=== PATIENT | female | born 1970 | race American Indian/Alaskan Native ===

== ENCOUNTER 2020-09-01 11:28 | Day surgery (SDC) | payer OTHER ==
--- NOTE | 2020-08-31 17:56 | History and Physical Report ---
History of Present Illness Date of examination: 08/28/20 Chief complaint: menometrorrhagia, possible endometrial mass History of present illness: Past History : 2 Term Births: 1 Living Children: 1 Elect. 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 History Operations: ankle surgery(R) liposuction gluteal lift Breast Reduction: Colon polypectomy (04/2020) Abnormal PAP: positive Infection History HIV Risk Eval: no Hx of STD: HSV Other: hpv Active Medications (reviewed today): VALACYCLOVIR HCL 1 GM ORAL TABLET (VALACYCLOVIR HCL) 1 tab po qd x5days as needed LOSARTAN POTASSIUM TABLET (LOSARTAN POTASSIUM TABS) MULTIVITAMINS ORAL CAPSULE (MULTIPLE VITAMIN) PARAGARD INTRAUTERINE COPPER INTRAUTERINE INTRAUTERINE DEVICE (IUD'S) Current Allergies (reviewed today): No known allergies Past Medical History: Reviewed history from 08/26/2020 and no changes required: Hypertension ECC(2010): atypical squamous metaplasia. Colon polyps benign (04/2020) Past Surgical History: Reviewed history from 08/26/2020 and no changes required: ankle surgery(R) liposuction gluteal lift Breast Reduction: Colon polypectomy (04/2020) Family History Summary: Reviewed history Last on 08/26/2020 and no changes required:08/31/2020 Other Family Member - Has No Family History of Uterine Cancer - Entered On: 02/25/2020 Other Family Member - Has No Family History of Small Bowel Cancer - Entered On: 02/25/2020 Other Family Member - Has No Family History of Stomach Cancer - Entered On: 02/25/2020 Other Family Member - Has No Family History of Pancreatic Cancer - Entered On: 02/25/2020 Other Family Member - Has No Family History of Ovarvian Cancer - Entered On: 02/25/2020 Other Family Member - Has No Family History of Kidney/Urinary Tract Cancer - Entered On: 02/25/2020 Other Family Member - Has No Family History of Spontaneous DVT-PE - Entered On: 02/25/2020 Other Family Member - Has No Family History of Colon Cancer - Entered On: 02/25/2020 Other Family Member - Has No Family History of Brain Cancer - Entered On: 02/25/2020 Other Family Member - Has No Family History of Biliary Tract Cancer - Entered On: 02/25/2020 Aunt - Has Family History Breast Cancer - maternal - Entered On: 02/25/2020 MGM - Has Family History Breast Cancer - Entered On: 02/25/2020 Mother - Has Family History Unknown - Entered On: 04/28/2017 General Comments - FH: adopted Social History: Reviewed history from 07/05/2018 and no changes required: Patient is single Smoking History: Patient has never smoked. Risk Factors: Smoked Tobacco Use: Never smoker Smokeless Tobacco Use: Never Passive smoke exposure: no Drug use: no Alcohol use: no Exercise: yes Seatbelt use: 100 % Mammogram History: Date of Last Mammogram: 06/11/2020 PAP Smear History: Date of Last PAP Smear: 07/18/2019 Previous Tobacco Use: Signed On 08/26/2020 Smoked Tobacco Use: Never smoker Smokeless Tobacco Use: Never Passive smoke exposure: no Drug use: no HIV high-risk behavior: no Caffeine use: 1 drinks per day Previous Alcohol Use: Signed On 08/26/2020 Alcohol use: no Exercise: yes Times per week: 4 Seatbelt use: 100 % Colonoscopy History: Date of Last Colonoscopy: 04/15/2020 Mammogram History: Date of Last Mammogram: 06/11/2020 PAP Smear History: Date of Last PAP Smear: 07/18/2019 Physical Exam Appearance: well developed, well nourished, no acute distress Other Exams Lungs: no rales, rhonchi, or wheezes Heart: S1, S2, no murmur, rub, or gallop Genitourinary Exam Uterus: deferred for EUA Impression & Recommendations: Problem # 1: Menometrorrhagia (ICD-626.2) (GNP27-L43.1) Diagnosis explained to patient . Questions answered. Discussed with patient various medical and surgical therapies common for treatment: Hormonal/medical therapy,endometrial ablation or hysterectomy. EMB suggestive of endometrial polyp, she desires IUD removal, hysterscopy with excision of mass if present with uterine curettage and any other indicated procedures. She declines ablation at this time. Consent reviewed and signed . Possible laparoscopy or laparotomy explained to patient. The risks and alternatives for this surgery were reviewed with the patient. She was informed of possible bleeding, infection, injury to bowel, bladder, ureters or other adjacent organs. The patient was instructed/informed the following: The normal length of hospital stay for this procedure. Nothing to eat or drink after midnight the evening prior to surgery. Pre-op instruction sheets given. Wound care instructions given. Infection precautions reviewed, patient to call for any signs or symptoms of infection. The usual discomforts associated with this procedure were detailed. Proper use of pain medicines was reviewed. Patient was given ample opportunity to have all her questions answered before signing informed consent. H&P dictated. Problem # 2: Endometrial mass (ICD-236.0) (INQ16-G30.0) by EMB Medications and Allergies Allergies Allergy/AdvReac Type Severity Reaction Status Date / Time No Known Allergies Allergy Verified 08/31/20 16:21 Home Medications Medication Instructions Recorded Confirmed Last Taken Type Azelastine 0.1% (Nf) [Astelin (Nf)] 1 spray NS DAILY 08/31/20 08/31/20 Unknown History Losartan [Cozaar] 50 mg PO QDAY 08/31/20 08/31/20 Unknown History Multivit-Min/FA/Lycopen/Lutein 1 each PO DAILY 08/31/20 08/31/20 Unknown History [Centrum Silver Tablet] Spironolactone [Aldactone] 50 mg PO QDAY 08/31/20 08/31/20 Unknown History Active Meds: Active Medications Lactated Ringer's (Lactated Ringers) 1,000 mls @ 100 mls/hr IV DIRECT TORRES Stop: 09/01/20 23:59 Midazolam HCl (Midazolam 2 Mg/2 Ml Inj) 2 mg IV PREOP NR Stop: 09/01/20 23:59 Assessment and Plan - Patient Problems (1) Menometrorrhagia Status: Acute (2) Endometrial mass Status: Acute
[~2020-09-01 11:28] MED LIST: LACTATED RINGERS 1,000 ML IV SCH; MIDAZOLAM 2 MG/2 ML INJ IV NR
[2020-09-01] MEDS ORDERED: ONDANSETRON 4 MG/2 ML INJ IV PRN (12:39)
[2020-09-01] MEDS ORDERED: HYDROmorphone 1 MG/1 ML INJ IV PRN (12:39)
--- NOTE | 2020-09-01 12:39 | Anesthesia Consultation ---
Anesthesia Consult and Med Hx Date of service: 09/01/20 - Airway Anesthetic Teeth Evaluation: Good ROM Head & Neck: Adequate Mental/Hyoid Distance: Adequate Mallampati Class: Class II Intubation Access Assessment: Probably Good - Pulmonary Exam CTA: Yes - Cardiac Exam Cardiac Exam: RRR - Pre-Operative Health Status ASA Pre-Surgery Classification: ASA2 Proposed Anesthetic Plan: General - Pulmonary Hx Smoking: Yes (THC occasionally) Hx Respiratory Symptoms: No Hx Sleep Apnea: No (LIGIA PRE SCREEN LOW RISK) - Cardiovascular System Hx Hypertension: Yes (took losartan this morning) - Central Nervous System CVA: No - Gastrointestinal Hx Gastroesophageal Reflux Disease: No - Endocrine Hx Renal Disease: No Hx Liver Disease: No Hx Insulin Dependent Diabetes: No Hx Non-Insulin Dependent Diabetes: No Hx Thyroid Disease: No - Other Systems Hx Substance Use: Yes (ocassional THC) Hx Obesity: Yes (BMI 34) - Additional Comments Anesthesia Medical History Comments: No hx anesthetic complications.
--- NOTE | 2020-09-01 12:39 | Anesthesia Day of Surgery ---
Anesthesia Day of Surgery - Day of Surgery Patient Examined: Yes Patient H&P Reviewed: Yes Patient is NPO: Yes
[2020-09-01] MEDS ORDERED: propofoL 200 MG/20 ML VIAL IV ONE (15:04)
[2020-09-01] MEDS ORDERED: fentaNYL 100 MCG/2 ML INJ ONE (15:23)
[2020-09-01] MEDS ORDERED: LIDOCAINE MPF (2%) 20 MG/1 ML VIAL 5 ML ONE (15:23)
[2020-09-01] MEDS ORDERED: ONDANSETRON 4 MG/2 ML INJ ONE (15:35)
[2020-09-01] MEDS ORDERED: dexAMETHasone 20 MG/5 ML VIAL ONE (15:35)
[2020-09-01] MEDS ORDERED: KETOROLAC 30 MG/1 ML INJ ONE (15:36)
[2020-09-01] MEDS ORDERED: LACTATED RINGERS 1,000 ML ONE (15:56)
--- NOTE | 2020-09-01 16:17 | Operative Report ---
Operative Report Operative Report: Date: 09/02/2020 PREOPERATIVE DIAGNOSES: 1. Menometrorrhagia 2. Desires removal of IUD POSTOPERATIVE DIAGNOSES: 1. Menometrorrhagia 2. Desires removal of IUD PROCEDURE PERFORMED: 1. Dilation and curettage (D&C). 2. Hysteroscopy. 3. Removal of IUD ANESTHESIA: General ESTIMATED BLOOD LOSS: Less than minimal cc. INDICATIONS: This is a 49-year-old [id number] female that presents menometrorrhagia. PROCEDURE: The patient was seen in the preoperative suite. Expected procedure and postoperative course discussed with her. She was taken to the operative suite where general anesthesia was performed. She was placed in a dorsal lithotomy position. . A bimanual exam was done, the uterus was found to be normal. She was prepped and draped in the normal sterile fashion. Timeout was performed. Her bladder was drained with the red Hansen catheter which produced approximately 200 cc of clear yellow urine. The cervix and vagina were grossly normal with no obvious masses or deformities. A bivalve operative speculum was placed in the vagina and the anterior lip of the cervix was grasped with the single-tooth tenaculum. Cervical stenosis was encountered however the cervix dilated to allow the uterine sound. The uterus was sounded to ~8 cm. The IUD string was grasped with uterine dressing forceps and removed intact and sent to pathology. The cervix was progressively dilated to allow the diagnostic hysteroscope. Under direct visualization, the ostia were within normal limits. The endometrial lining appeared normal, however, there was no obvious evidence of malignancy or endometrial masses.. The hysteroscope was removed and a small sharp curette was placed intrauterine very carefully using anterior wall for guidance. Endometrial curettings were obtained. The endometrial sampling was placed on Telfa pad and sent to Pathology for evaluation, permanent. The hysteroscope was introduced again, no evidence of perforation was noted. At this point procedure was ended. The single-tooth tenaculum and speculum were removed. The cervix was found to be hemostatic. Counts were correct. Patient was taken to the PACU stable. Distention fluid: Normal saline Deficit: 50 mL
[2020-09-01] MEDS ORDERED: SODIUM CHLORIDE 0.9% IRRIG SOLN 3000 ML IR ONE (16:18)
--- NOTE | 2020-09-01 17:02 | Discharge Summary ---
Providers - Providers Date of discharge: 09/01/20 Attending physician: KERWIN LAZO Primary care physician: NÉSTOR BARKLEY Hospitalization Condition: Good Hospital course: hysteroscopy D&C, IUD removal Disposition: [id number] TO HOME OR SELFCARE - Discharge Diagnoses (1) Menometrorrhagia Status: Acute (2) Endometrial mass Status: Acute Core Measure Documentation - Palliative Care Palliative Care/ Comfort Measures: Not Applicable - Core Measures Any of the following diagnoses?: none Exam - Constitutional Vitals: Temp Pulse Resp BP Pulse Ox 96.9 F L 75 14 143/90 98 09/01/20 16:26 09/01/20 16:55 09/01/20 16:55 09/01/20 16:55 09/01/20 16:55 General appearance: Present: no acute distress - Respiratory Respiratory effort: normal - Cardiovascular Rhythm: regular - Psychiatric Psychiatric: appropriate mood/affect, intact judgment & insight, memory intact, cooperative Plan Activity: other (No sex x1week) Weight Bearing Status: Full Weight Bearing Diet: regular Special Instructions: no heavy lifting (greater than 25lbs) Follow up with: NÉSTOR BARKLEY MD [Primary Care Provider] - 7 Days KERWIN LAZO MD [Staff Physician] - (As scheduled) Prescriptions: Ibuprofen [Motrin 800 MG tab] 800 mg PO Q8HR PRN #30 tablet PRN Reason: Pain, Moderate (4-6) oxyCODONE /ACETAMINOPHEN [Percocet 5/325 mg] 1 tab PO Q6HR PRN #7 tablet PRN Reason: Pain
[2020-09-01 18:12] VITALS: BP 141/74
== END 2020-09-01 17:50 | disposition home or self-care (01) ==
LOC: OR 11:28
PROVIDERS: ATTEND Obstetrics & Gynecology
DX: Z30.432 Encounter for removal of intrauterine contraceptive device (principal); N92.1 Excessive and frequent menstruation with irregular cycle; I10 Essential (primary) hypertension; E66.9 Obesity, unspecified; Z98.890 Other specified postprocedural states; Z79.899 Other long term (current) drug therapy; Z68.34 Body mass index [BMI] 34.0-34.9, adult
CPT/HCPCS: 36415; 58301; 58558; 81025; 84132; 88300; 88305; A4217; J1100; J1885; J2250; J2405; J2704; J3010; J7120; 88302